=== PATIENT | male | born 2000 | race Two or more races ===

== ENCOUNTER 2025-04-04 16:16 | Emergency (ER) | payer MEDICAID, SELFPAY ==
[2025-04-04 16:18] VITALS: BMI 15.7
--- NOTE | 2025-04-04 16:28 | PC.NURSE ---
[facility] .
[2025-04-04 16:50] VITALS: BP 127/67; PULSE 93; RESP 19; TEMP 38; O2SAT 97
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
[2025-04-04] MEDS: KETOROLAC INJ 60 MG/2 ML VIAL 15 MG IM (18:28)
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
[2025-04-04] MEDS: ONDANSETRON ODT 4 MG TABRAP PO (20:52)
[2025-04-04] MEDS: ACETAMINOPHEN 325 MG TABLET 650 MG PO (20:52)
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
[2025-04-04 21:32] VITALS: BP 118/76; PULSE 72; RESP 18; TEMP 37.2; O2SAT 99
== END 2025-04-04 21:34 | disposition home or self-care (01) ==
PROVIDERS: Emergency Provider Emergency Medicine
DX: S16.1XXA Strain of muscle, fascia and tendon at neck level, initial encounter (principal); V43.52XA Car driver injured in collision with other type car in traffic accident, initial encounter
CPT/HCPCS: 70450; 72125; 72131; 96372; 99283; J1885; Q0162; A9270